=== PATIENT | female | born 1965 | race Caucasian/White ===

== ENCOUNTER 2017-09-12 15:47 | Emergency (ER) | payer OTHER ==
[~2017-09-12] VITALS: Ht 162.6 cm; Wt 76.0 kg
[~2017-09-12 15:47] MED LIST: LISI-420 PO; METF1000 PO; ROSU20TA PO; TAMO20TA3 PO; VENL75TA17 PO
[2017-09-12 16:10] VITALS: BP 122/78
--- NOTE | 2017-09-12 17:26 | NUR ---
PATIENT AMBULATED TO BED 8.
--- NOTE | 2017-09-12 17:30 | NUR ---
52F BIB FAMILY C/O BL LOWER BACK PAIN, PRESSURE, RADIATES TO NECK, 8/10 X 2 WEEKS; PT STATES NO TRAUMA OR INJURY TO SITE AT THIS TIME; PT STATES NO URINARY BURNING, FREQUENCY, OR RETENTION AT THIS TIME; PT AA&OX4, PERRLA, BL LUNG SOUNDS CLEAR, RR EVEN/UNLABORED, SKIN IS WARM/DRY/INTACT AT THIS TIME; PT STATES NO N/V/D AT THIS TIME; HX: DM, HTN, HYPERLIPIDEMIA, RIGHT BREAST CANCER WITH LYMPH NODES REMOVAL; PT RESTING IN BED WITH HOB ELEVATED AND IN LOWEST POSITION; POSITIONED FOR COMFORT; ER MD MADE AWARE OF STATUS. WILL CONTINUE TO MONITOR.
--- NOTE | 2017-09-12 17:50 | NUR ---
Patient being evaluated by DR HARRIS at bedside.
[2017-09-12] MEDS ORDERED: DIAZEPAM 5 MG TAB PO ONE (18:05)
[2017-09-12] MEDS ORDERED: oxyCODONE/APAP 5/325 MG 1 TAB TAB PO ONE (18:05)
--- NOTE | 2017-09-12 19:11 | NUR ---
Pt report given to HOLDEN WEIR. Transfer of care at this time.
--- NOTE | 2017-09-12 20:38 | NUR ---
Dr. Kauffman evaluating patient at bedside.
[2017-09-12 20:55] VITALS: BP 120/64
--- NOTE | 2017-09-12 20:55 | NUR ---
Patient discharged with v/s stable. Written and verbal after care instructions given and explained. Patient alert, oriented and verbalized understanding of instructions. Ambulatory with steady gait. All questions addressed prior to discharge. ID band removed. Patient advised to follow up with PMD. Rx of CYCLOBENZAPRINE HYDROCHLORIDE AND DICLOFENAC SODIUM given. Patient educated on indication of medication including possible reaction and side effects. Opportunity to ask questions provided and answered.
== END 2017-09-12 20:55 | disposition home or self-care (01) ==
LOC: MED 15:47
DX: M62.830 Muscle spasm of back (principal); E11.9 Type 2 diabetes mellitus without complications; I10 Essential (primary) hypertension; Z79.899 Other long term (current) drug therapy; Z88.2 Allergy status to sulfonamides
CPT/HCPCS: 72080; 72170; 81002; 81025; 82948; 99284

== ENCOUNTER 2021-06-26 10:59 | Day surgery (SDC) | payer OTHER ==
[~2021-06-26] VITALS: Ht 160 cm; Wt 72.6 kg
[~2021-06-26 10:59] MED LIST changes: -LISI-420 PO; +LISI-487 PO; -ROSU20TA PO; +ROSU20TA1 PO
[2021-06-26] MEDS ORDERED: fentaNYL citrate 0.05 MG/ML VIAL ONE (12:52)
[2021-06-26] MEDS ORDERED: diphenhydrAMINE 50 MG/ML VIAL ONE (12:52)
[2021-06-26] MEDS ORDERED: MIDAZOLAM 5 MG/5 ML VIAL ONE (12:53)
[2021-06-26] MEDS ORDERED: MIDAZOLAM 2 MG/2 ML VIAL IVP ONE (14:20)
[2021-06-26] MEDS ORDERED: fentaNYL citrate 0.05 MG/ML VIAL IVP ONE (14:20)
== END 2021-06-26 13:45 | disposition home or self-care (01) ==
LOC: MDS 10:59 → MMU 11:00 → MDS 13:45
PROVIDERS: ATTEND Internal Medicine Gastroenterology
DX: R13.10 Dysphagia, unspecified (principal); D51.9 Vitamin B12 deficiency anemia, unspecified; I10 Essential (primary) hypertension; E11.9 Type 2 diabetes mellitus without complications; E78.5 Hyperlipidemia, unspecified; Z85.3 Personal history of malignant neoplasm of breast; Z86.010 Personal history of colon polyps; Z90.710 Acquired absence of both cervix and uterus; Z88.1 Allergy status to other antibiotic agents; Z79.84 Long term (current) use of oral hypoglycemic drugs; Z79.899 Other long term (current) drug therapy
CPT/HCPCS: 43239; 88305; 88312; 88313; 88342; J2250; J3010; J1200

== ENCOUNTER 2021-08-06 06:09 | Day surgery (SDC) | payer OTHER ==
[~2021-08-06] VITALS: Ht 160 cm; Wt 74.8 kg
[2021-08-06] MEDS ORDERED: VENL37.55 PO (07:03)
[2021-08-06] MEDS ORDERED: LISI40TA8 PO (07:03)
[2021-08-06] MEDS ORDERED: MIDAZOLAM 5 MG/5 ML VIAL ONE (08:48)
[2021-08-06] MEDS ORDERED: LIDOCAINE 2% 100 MG/5 ML UJET TP ONE ×2 (08:48→09:10)
[2021-08-06] MEDS ORDERED: fentaNYL citrate 0.05 MG/ML VIAL ONE (08:48)
[2021-08-06] MEDS ORDERED: diphenhydrAMINE 50 MG/ML VIAL ONE (08:48)
[2021-08-06] MEDS ORDERED: fentaNYL citrate 0.05 MG/ML VIAL IVP ONE (09:10)
[2021-08-06] MEDS ORDERED: MIDAZOLAM 2 MG/2 ML VIAL IVP ONE (09:10)
== END 2021-08-06 10:20 | disposition home or self-care (01) ==
LOC: MDS 06:09 → MFCC 06:12 → MDS 10:20
PROVIDERS: ATTEND Internal Medicine Gastroenterology
DX: Z12.11 Encounter for screening for malignant neoplasm of colon (principal); D12.5 Benign neoplasm of sigmoid colon; K64.9 Unspecified hemorrhoids; I10 Essential (primary) hypertension; E11.9 Type 2 diabetes mellitus without complications; K21.9 Gastro-esophageal reflux disease without esophagitis; Z86.010 Personal history of colon polyps; Z88.1 Allergy status to other antibiotic agents; Z79.899 Other long term (current) drug therapy; Z90.710 Acquired absence of both cervix and uterus
CPT/HCPCS: 45385; 82948; 88305; J2250; J3010; J1200